=== PATIENT | female | born 1980 | race Caucasian/White ===

== ENCOUNTER 2016-12-09 11:04 | Emergency (ER) | payer OTHER ==
[~2016-12-09] VITALS: Ht 180.3 cm; Wt 150.9 kg
[~2016-12-09 11:04] MED LIST: ASPI500T15 PO; ESOM20CA28 PO; TPR100T PO; VALA500T PO
[2016-12-09 11:11] VITALS: BP 119/81; PULSE 88; RESP 16; O2SAT 99
[2016-12-09] MEDS ORDERED: VALA500T2 PO (11:16)
[2016-12-09] MEDS ORDERED: VENL75CA PO (11:16)
--- NOTE | 2016-12-09 11:35 | ED.REPORT ---
HPI-Headache Date of Service Dec 09, 2016 ED Provider: Doc,Ed MD History of Present Illness: headache all over head. usually does benadryl makes it go away. primary care is no one. headache started this morning, worse at [employer]. right sided pain for 2 weeks faded with pain meds from clinic. 9/10 pain. itching with nsaids. patient states morphine doesn't work but dilaulid works great. Nursing Notes Stated Complaint: HEADACHE/RIGHT SIDE PAIN Chief Complaint: Headache Nursing Notes Reviewed: Yes Allergies: Coded Allergies: prochlorperazine (Verified Allergy, Severe, 12/09/16) SEIZURES NSAIDS (Non-Steroidal Anti-Inflamma (Verified Allergy, Intermediate, rash , itching, 12/09/16) Coconut (Verified Allergy, Unknown, 12/09/16) morphine (Verified Adverse Reaction, Unknown, DOES NOT WORK, 12/09/16) Scheduled Valacyclovir HCl (Valtrex) 500 Mg Tablet 500 MG PO DAILY Venlafaxine ER (Effexor XR) 75 Mg Capsule 75 MG PO DAILY General Time Seen by MD: 11:30 Chief Complaint Headache, Other (right lower back pain also Seen 12/02/2016 for bilateral back pain at [facility]) Hx Obtained From: Patient Sudden in Onset?: No Symptom Duration: Since onset Location: : Generalized (for headache) Severity: Current: Pain level 9 out of 10 Recent Healthcare: Recent doctor visit (12/02/2016 for bilateral back pain) Past Medical History Past Medical History Notes: PCP: Dr. 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: Appendectomy, Cholecystectomy Smoking History Former Smoker (quit 08/2017) Social History Alcohol Use: Denies alcohol use Drug Use: THC Occupation lives with 3 children Ambulatory Status Independent Review of Systems Basic Review of Systems Respiratory: No shortness of breath, No cough, No wheeze Allergy / Immune: No allergy Physical Exam Initial Vital Signs Vital Signs (First) Date Time Temp Pulse Resp B/P Pulse Ox O2 Delivery O2 Flow Rate FiO2 12/09/16 11:11 36.5 88 16 119/81 99 Room Air Initial VS: Reviewed, Vital signs normal ENT: Mucous membranes moist, Conjunctiva normal, No scleral icterus Respiratory: Breath sounds normal, Clear to auscultation, No respiratory distress Cardiovascular: Regular rate & rhythm, Heart sounds normal, Intact distal pulses Abdomen / GI: Soft, Non-tender, No guarding, No rebound, No distention Back: No CVA tenderness Lymphatic: No lymphadenopathy Extremities: Vascular intact, Neuro intact, No swelling, No tenderness Skin: Warm, Dry, No cyanosis Psychiatric: Mood/affect normal, Behavior normal, Normal thought content General/Constitutional: Awake, Alert, No acute distress, Well appearing, Well developed, Well hydrated, Well nourished, Cooperative, Not toxic appearing Head / Eyes: Atraumatic, Normocephalic, PERRL, EOMI Neck: Atraumatic, Supple, No meningismus Neurologic: Oriented X3, Speech NL, No motor deficits ENT: Atraumatic, Airway patent, Mucous membranes moist Respiratory / Chest: Atraumatic, Breath sounds NL, Breath sounds = bilat, No respiratory distress Cardiovascular: Heart rate NL, Regular rhythm, Heart sounds NL, No gallop Abdomen: Atraumatic, Soft, Non-tender, McBurney's non-tender Interpretation & Diagnostics Lab Results Interpretation Result Diagram: 12/09/16 1220 12/09/16 1220 Test 12/09/16 12:20 White Blood Count 6.9th/mm3 (3.8-10.1) Red Blood Count 4.39mil/mm3 (3.90-5.20) Hemoglobin 13.6g/dL (12.0-15.6) Hematocrit 40.7% (35.0-46.0) Mean Corpuscular Volume 92.7fL (81-100) Mean Corpuscular Hemoglobin 31.0pg (27.0-35.0) Mean Corpuscular Hemoglobin Concent 33.4% (32.0-37.0) Red Cell Distribution Width 13.3% (12.3-15.4) Platelet Count 195bil/L (150-400) Neutrophils (%) (Auto) 64.8% (40-74) Lymphocytes (%) (Auto) 29.6% (14-46) Monocytes (%) (Auto) 4.2% (4-12) Eosinophils (%) (Auto) 1.2% (0-5) Basophils (%) (Auto) 0.1% (0-3) Urine Color Yellow (YELLOW) Urine Appearance Clear (CLEAR,HAZY) Urine pH 5.5 (5.0-8.0) Urine Specific Gabbs 1.020 (1.003-1.035) Urine Protein Negativemg/dL (NEG,TRACE) Urine Glucose (UA) Negativemg/dL (NEGATIVE) Urine Ketones Negativemg/dL (NEGATIVE) Urine Occult Blood Negative (NEGATIVE) Urine Nitrite Negative (NEGATIVE) Urine Bilirubin Negative (NEGATIVE) Urine Urobilinogen Normalmg/dL (NORMAL) Urine Leukocyte Esterase Negative (NEGATIVE) Urine RBC 0-2/hpf (0-2) Urine WBC 0-5/hpf (0-5) Urine Epithelial Cells None/hpf (NONE-MOD) Urine Crystals None seen (NONE SEEN) Urine Bacteria None/hpf (NONE-FEW) Urine Hyaline Casts None/lpf (NONE) Urine Granular Casts None seen (NONE SEEN) Urine Waxy Casts None seen (NONE SEEN) Urine Red Blood Cell Casts None seen (NONE SEEN) Urine White Blood Cell Casts None seen (NONE SEEN) Urine Mucus None seen (None Seen) Urine Trichomonas None seen (NONE SEEN) Urine Yeast None (NONE SEEN) Urinalysis Comment None Urine Culture Reflexed Not indicated Sodium Level 139mEq/L (134-144) Potassium Level 3.9mEq/L (3.5-5.2) Chloride Level 102mEq/L (97-108) Carbon Dioxide Level 21mmol/L (18-29) Blood Urea Nitrogen 19mg/dL (6-20) Creatinine 0.60mg/dL (0.57-1.00) Estimat Glomerular Filtration Rate 163mL/min (>59) Glucose Level 101mg/dL (60-99) Calcium Level 8.9mg/dL (8.5-10.1) Total Bilirubin 0.3mg/dL (0.0-1.2) Aspartate Amino Transf (AST/SGOT) 21U/L (0-50) Alanine Aminotransferase (ALT/SGPT) 23U/L (0-32) Alkaline Phosphatase 69U/L (25-150) Total Protein 6.8g/dL (6.4-8.4) Albumin 4.5g/dL (3.4-5.0) Hold Tse Top Tube Received (Received) Lab Results Interpretation: urine is negative CT Head Interpretation PROCEDURE: CT BRAIN WITHOUT CONTRAST ([id number]) INDICATIONS: headache TECHNIQUE: Noncontrast 4.5 mm thick angled axial sections acquired from the foramen magnum to the vertex, with coronal reformats. COMPARISON: [facility], CT, HEAD WITHOUT CONTRAST, 12/06/2015, 11:54. FINDINGS: Image quality: Excellent. CSF spaces: Basal cisterns are patent. No extra-axial fluid collections. Ventricles are normal in size and shape. There are bilateral ventriculostomy catheters. The right frontal catheter terminates in the anterior horn of the right lateral ventricle, and the left lateral catheter terminates in the anterior horn of the left lateral ventricle. Brain: No midline shift. No intracranial masses or hemorrhage. Orr-white matter interface is normal. Skull and face: Calvarium and visualized facial bones are intact, without suspicious lesions. Sinuses: Visualized sinuses and mastoids are clear. IMPRESSION: 1. No acute intracranial findings. 2. Bilateral ventriculostomy catheters. No hydrocephalus. Re-Eval/Medical Decision Med Decision/Clinical Course 36 year old female presents for evualation of headache and right lower back pain. patient is requesting opiates as she states that is the only thing that works. Advised opiates not indicated for head pain or muscle pain. Offered immitrex, patient states it does not help Discharge & Departure Impression: Primary Impression: Headache Headache type: tension-type Additional Impression: Muscle ache Disposition: Home Patient Instructions: Acute Headache (ED) Additional Instructions: Your labs are all normal including the urine. The CT KUB does not show any sign of a stone or infection. Unfortunately, opiates are not something that we use for headaches here. You can try duloxetine to see if that is not helpful. Please follow with the [facility] tomorrow. You can use phenergan to see if that helps with the nausea. Referrals: [facility] Provider for APC: Lorne Dawson MD copies to: [facility] [place] Dec 09, 2016 11:35 Additional Instructions: Your labs are all normal including the urine. The CT KUB does not show any sign of a stone or infection. Unfortunately, opiates are not something that we use for headaches here. You can try duloxetine to see if that is not helpful. Please follow with the [facility] tomorrow. You can use phenergan to see if that helps with the nausea. Referrals: [facility] Provider for APC: Lorne Dawson MD copies to: [facility] [place] Dec 09, 2016 11:35
[2016-12-09] MEDS ORDERED: Dexamethasone Inj 10 MG in 0.9% Sodium Chloride-Pha MIX 50 ML IV ONE (11:50)
[2016-12-09] MEDS: Acetaminophen IV 1,000 MG in IV Premix 1 EACH IV ONE ×2 (11:50→12:23)
[2016-12-09] MEDS ORDERED: 0.9% Sodium Chloride 1,000 ML IV ONE (11:50)
[2016-12-09] MEDS ORDERED: Ondansetron 2 mg/mL 2 mL Inj IVPUSH ONE (11:50)
--- NOTE | 2016-12-09 12:37 | DRSVH ---
PROCEDURE: CT KUB ([id number]) INDICATIONS: right flank pain TECHNIQUE: Noncontrast 5 mm thick sections acquired from the diaphragms to the symphysis. 5 mm thick coronal an d sagittal reformats were then performed. For radiation dose reduction, the following was used: aut omated exposure control, adjustment of mA and/or kV according to patient size. COMPARISON: None. FINDINGS: Image quality: Excellent. Lung bases: Lung bases are clear. Heart size is normal. Urinary system: Both kidneys are normal in size. No kidney stones. No hydronephrosis or perinephri c fat stranding. Both ureters appear non-dilated throughout their expected courses. Bladder wall th ickness is normal; no calcified bladder stones. The uterus is nonvisualized and may be surgically absent. Other solid organs: Liver and spleen are normal in size. Gallbladder is unremarkable. Pancreas is normal in contours. No adrenal nodules. Peritoneum and bowel: Unenhanced bowel loops demonstrate normal wall thickness and caliber. The appe ndix is not visualized; however there is no discrete right lower quadrant fluid or fat stranding to s uggest acute appendicitis. No free fluid or air. Nodes and vessels: No retroperitoneal or mesenteric adenopathy by size criteria. Aorta and inferior vena cava are normal in caliber. Abdominal wall: No ventral hernias. Pelvis: No free pelvic fluid. No inguinal hernias or adenopathy. Bones: No suspicious bony lesions. No vertebral body compression fractures. IMPRESSION: 1. No nephrolithiasis, hydronephrosis, hydroureter, or ureterolithiasis. 2. No acute intra-abdominal findings. The appendix is not visualized; however there are no ancillary findings to suggest acute appendicitis. Dictated by: Agustina Wilhelm M.D. on 12/09/2016 at 12:29 Approved by: Agustina Wilhelm M.D. on 12/09/2016 at 12:35
[2016-12-09 12:39] LABS: BASOPHILS % (AUTO) 0.1 % (0-3); EOSINOPHILS % (AUTO) 1.2 % (0-5); MONOCYTES % (AUTO) 4.2 % (4-12); Mean Corpuscular Volume 92.7 fL (81-100); NEUTROPHILS % (AUTO) 64.8 % (40-74); Platelet Count 195 bil/L (150-400)
[2016-12-09 13:12] LABS: APPEARANCE,URINE CLEAR (CLEAR,HAZY); COLOR,URINE YELLOW (YELLOW); OCCULT BLOOD,URINE NEGATIVE (NEGATIVE); PH,URINE 5.5 (5.0-8.0); UROBILINOGEN,URINE NORMAL (NORMAL)
[2016-12-09] MEDS ORDERED: Haloperidol 5 mg/mL Inj IVPUSH ONE (13:30)
[2016-12-09] MEDS ORDERED: MetoCLOpramide 5 mg/mL 2 mL Inj IM ONE (13:30)
--- NOTE | 2016-12-09 13:50 | DRSVH ---
PROCEDURE: CT BRAIN WITHOUT CONTRAST ([id number]) INDICATIONS: headache TECHNIQUE: Noncontrast 4.5 mm thick angled axial sections acquired from the foramen magnum to the vertex, with c oronal reformats. COMPARISON: [facility], CT, HEAD WITHOUT CONTRAST, 12/06/2015, 11:54. FINDINGS: Image quality: Excellent. CSF spaces: Basal cisterns are patent. No extra-axial fluid collections. Ventricles are normal in size and shape. There are bilateral ventriculostomy catheters. The right frontal catheter terminates in the anterior horn of the right lateral ventricle, and the left lateral catheter terminates in the anterior horn of the left lateral ventricle. Brain: No midline shift. No intracranial masses or hemorrhage. Orr-white matter interface is norm al. Skull and face: Calvarium and visualized facial bones are intact, without suspicious lesions. Sinuses: Visualized sinuses and mastoids are clear. IMPRESSION: 1. No acute intracranial findings. 2. Bilateral ventriculostomy catheters. No hydrocephalus. Dictated by: Agustina Wilhelm M.D. on 12/09/2016 at 13:47 Approved by: Agustina Wilhelm M.D. on 12/09/2016 at 13:48
[2016-12-09 14:46] VITALS: BP 130/62; PULSE 94; RESP 15; O2SAT 96
== END 2016-12-09 14:34 | disposition home or self-care (01) ==
LOC: SED 11:04
DX: G44.209 Tension-type headache, unspecified, not intractable (principal); M79.1 Myalgia; Z87.891 Personal history of nicotine dependence; Z88.5 Allergy status to narcotic agent; Z88.8 Allergy status to other drugs, medicaments and biological substances
CPT/HCPCS: 36415; 70450; 74176; 80053; 81000; 81025; 85025; 96372; 96374; 96375; 99285; J0131; J1100; J1200; J1630; J2405; J2765; J7030

== ENCOUNTER 2017-02-13 18:54 | Emergency (ER) | payer OTHER ==
[~2017-02-13] VITALS: Ht 180.3 cm; Wt 101.0 kg
[~2017-02-13 18:54] MED LIST changes: -ASPI500T15 PO; -ESOM20CA28 PO; -TPR100T PO; -VALA500T PO; +VALA500T2 PO; +VENL75CA PO
[2017-02-13 19:00] VITALS: BP 128/86; PULSE 92; RESP 16; O2SAT 97
--- NOTE | 2017-02-13 19:10 | ED.REPORT ---
HPI-Abd Pain F Under 40 Date of Service February 13, 2017 ED Provider: The patient is a 36 year old female with history of endometriosis, inguinal hernias s/p surgical repair, and multiple prior abdominal surgeries ( cholecystectomy, hysterectomy, appendectomy, bladder sling) who presents to the emergency department complaining of right groin pain that began 1 month ago. The patient states she was at work, bending and twisting when she first noticed back pain. Since the initial injury the pain has became more severe and is now located in her right groin region. Her pain is exacerbated with palpation. She has been seen by her regular doctor who thought she may have a hernia. The patient has an ultrasound scheduled for tomorrow but her pain was too severe tonight to wait. She denies fever, chills, vomiting, diarrhea, constipation, cough, chest pain or shortness of breath. Nursing Notes Stated Complaint: GROIN PAIN NO INJURY Chief Complaint: Female Abdominal Pain Nursing Notes Reviewed: Yes Allergies: Coded Allergies: prochlorperazine (Verified Allergy, Severe, 12/09/16) SEIZURES NSAIDS (Non-Steroidal Anti-Inflamma (Verified Allergy, Intermediate, rash , itching, 12/09/16) Coconut (Verified Allergy, Unknown, 12/09/16) morphine (Verified Adverse Reaction, Unknown, DOES NOT WORK, 12/09/16) Scheduled Valacyclovir HCl (Valtrex) 500 Mg Tablet 500 MG PO DAILY Venlafaxine ER (Effexor XR) 75 Mg Capsule 75 MG PO DAILY General Time Seen by MD: 19:08 Chief Complaint Other (right groin pain) Hx Obtained From: Patient, Daughter Arrived By: Walk-in Sudden in Onset?: Yes Onset Occurred: More than a week ago... Symptom Duration: Since onset Progression since Onset: Constant, Gradually worsening Location: : Suprapubic (right groin) Quality: Painful Severity: Current: Severe Severity: Maximum: Severe Recent Healthcare: No recent hospitalization, Recent doctor visit Similar Sx Previous: Yes Past Medical History Past Medical History Notes: PCP: Dr. 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: Appendectomy, Cholecystectomy, Hysterectomy Family History Noncontributory Smoking History Former Smoker Social History Alcohol Use: Denies alcohol use Drug Use: THC Other Social History: Good social support, Lives with children, Local resident Occupation lives with 3 children Ambulatory Status Independent Review of Systems Constitutional: Denies: Chills, Fever Respiratory: Denies: Non-productive cough, Shortness of breath Cardiovascular: Denies: Chest pain GI: Reports: Abdominal pain, Denies: Constipation, Diarrhea, Vomiting Musculoskeletal: Reports: Back pain Complete sys rev & neg: except as marked. Physical Exam Initial Vital Signs Vital Signs (First) Date Time Temp Pulse Resp B/P Pulse Ox O2 Delivery O2 Flow Rate FiO2 02/13/17 19:00 37. 92 16 128/86 97 Room Air Initial VS: Reviewed Head / Eyes: Atraumatic, Normocephalic, PERRL ENT: Mucous membranes moist, Conjunctiva normal, No scleral icterus Neck: Supple, Non-tender, Full range of motion Lymphatic: No lymphadenopathy Extremities: Vascular intact, Neuro intact, No swelling, No tenderness Skin: Warm, Dry, No cyanosis Neurologic: Alert, Oriented, Nonfocal Psychiatric: Mood/affect normal, Behavior normal, Normal thought content General/Constitutional: Awake, Alert Respiratory / Chest: Atraumatic, Breath sounds NL, Breath sounds = bilat, No respiratory distress, No rales, No rhonchi, No wheezing Cardiovascular: Heart rate NL, Regular rhythm, No gallop, No rubs, Peripheral circulation NL Heart Sounds / Murmur: Positive: Systolic murmur present.. (II/) Abdomen: Soft, No guarding, No rebound, BS normoactive, No distention She is very tender over the right inguinal ligament. Back: Inspection NL Flank / Spine / Paraspinal: Positive: Flank tender R Interpretation & Diagnostics Interpretation & Diagnostics: ABDOMINAL US IMPRESSION: Mass at the clinical area of concern likely represents postoperative change. A small hernia is possible although no bowel or abdominal contents are specifically identified. This finding could be more definitively evaluated with a pelvic CT including marker of the clinical area of concern. Dictated by: Ivan Hannah M.D. on 02/13/2017 at 21:34 Approved by: Ivan Hannah M.D. on 02/13/2017 at 21:37 Lab Results Interpretation Result Diagram: 02/13/17193702/13/171937 Test 02/13/17 19:38 02/13/17 20:20 White Blood Count 7.0th/mm3 (3.8-10.1) Red Blood Count 4.55mil/mm3 (3.90-5.20) Hemoglobin 14.2g/dL (12.0-15.6) Hematocrit 42.2% (35.0-46.0) Mean Corpuscular Volume 92.7fL (81-100) Mean Corpuscular Hemoglobin 31.2pg (27.0-35.0) Mean Corpuscular Hemoglobin Concent 33.6% (32.0-37.0) Red Cell Distribution Width 13.6% (12.3-15.4) Platelet Count 226bil/L (150-400) Neutrophils (%) (Auto) 54.1% (40-74) Lymphocytes (%) (Auto) 36.5% (14-46) Monocytes (%) (Auto) 7.2% (4-12) Eosinophils (%) (Auto) 1.9% (0-5) Basophils (%) (Auto) 0.3% (0-3) Sodium Level 139mEq/L (134-144) Potassium Level 3.9mEq/L (3.5-5.2) Chloride Level 102mEq/L (97-108) Carbon Dioxide Level 23mmol/L (18-29) Blood Urea Nitrogen 15mg/dL (6-20) Creatinine 0.70mg/dL (0.57-1.00) Estimat Glomerular Filtration Rate 136mL/min (>59) Glucose Level 86mg/dL (60-99) Calcium Level 9.6mg/dL (8.5-10.1) Total Bilirubin 0.2mg/dL (0.0-1.2) Aspartate Amino Transf (AST/SGOT) 18U/L (0-50) Alanine Aminotransferase (ALT/SGPT) 19U/L (0-32) Alkaline Phosphatase 75U/L (25-150) Total Protein 7.2g/dL (6.4-8.4) Albumin 4.3g/dL (3.4-5.0) Hold Purple Top Tube Received (Received) Hold Blue Top Tube Received (Received) Hold [place] Top Tube Received (Received) Hold Tse Top Tube Received (Received) Re-Eval/Medical Decision Source of Hx: Old records, Family Re-Evaluation/Progress : Time of Eval: 22:25 Re-Evaluation/Progress Note: Pt rechecked. US shows a reducable hernia. Counseled Regarding: Diagnosis, Lab results, Need for follow-up, When/why to return to ED Discharge & Departure Primary Impression: Inguinal hernia Obstruction and gangrene presence: without obstruction or gangrene Laterality : unspecified laterality Recurrence: not specified as recurrent Qualified Code: K40.90 - Unilateral inguinal hernia, without obstruction or gangrene, not specified as recurrent Additional Impression: Abdominal pain Disposition: Home Discharge Condition All VS Reviewed: Yes Condition: Stable Patient Instructions: Acute Abdominal Pain (ED), Inguinal Hernia (ED) Additional Instructions: Thank you for entrusting us with your care today. Your ultrasound shows evidence of an inguinal hernia. No evidence of incarceration. Call your doctor's office tomorrow morning and tell them you were in the ER and need an appointment in the next day or two in order to get a surgeon and for pain management. I do not think narcotics are a good option for you right now. Use Tylenol 1000 mg every 6 hours as needed for pain. Follow-up with your regular doctor next week for re-evaluation. Seek care for any new or concerning symptoms. Referrals: OTHER,PHYSICIAN (PCP) [facility] Scribe Attestation Portions of this note were transcribed by Faith Sterling. I, Dr. Dawson personally performed the history, physical exam and medical decision-making; I reviewed and confirmed the accuracy of the information in the transcribed note. Signed by: Jairo Taylor, 02/13/2017 at 2100. copies to: OTHER,PHYSICIAN; [facility] Lorne Dawson MD February 13, 2017 19:09 Faith Sterling February 13, 2017 19:17 Christi Starr February 13, 2017 22:31
[2017-02-13] MEDS ORDERED: Ondansetron 2 mg/mL 2 mL Inj IVPUSH PRN (19:20)
[2017-02-13] MEDS ORDERED: Iohexol 300 mg/mL 30 mL Inj PO ONE (19:45)
[2017-02-13 19:55] LABS: BASOPHILS % (AUTO) 0.3 % (0-3); EOSINOPHILS % (AUTO) 1.9 % (0-5); MONOCYTES % (AUTO) 7.2 % (4-12); Mean Corpuscular Hemoglobin 31.2 pg (27.0-35.0); Mean Corpuscular Volume 92.7 fL (81-100); NEUTROPHILS % (AUTO) 54.1 % (40-74); Platelet Count 226 bil/L (150-400)
--- NOTE | 2017-02-13 21:44 | DRSVH ---
PROCEDURE: US ABDOMEN, LIMITED ([id number]) INDICATIONS: right groin pain TECHNIQUE: Real-time focused scanning was performed of the abdomen with attention to the appendix, with image do cumentation. COMPARISON: [facility], CT from 12/09/16. FINDINGS: There is a 19 mm hypoechoic mass at the clinical area of of concern in the right inguinal region with no distinct bowel or abdominal contents most consistent with postoperative change. A small hernia is possible. IMPRESSION: Mass at the clinical area of concern likely represents postoperative change. A small cailin ia is possible although no bowel or abdominal contents are specifically identified. This finding coul d be more definitively evaluated with a pelvic CT including marker of the clinical area of concern. Dictated by: Ivan Hannah M.D. on 02/13/2017 at 21:34 Approved by: Ivan Hannah M.D. on 02/13/2017 at 21:37
[2017-02-13] MEDS ORDERED: MetoCLOpramide 5 mg/mL 2 mL Inj ONE (22:08)
[2017-02-13] MEDS ORDERED: MetoCLOpramide 5 mg/mL 2 mL Inj IVPUSH ONE (22:25)
[2017-02-13 23:16] VITALS: BP 130/78; PULSE 80; RESP 16; O2SAT 97
== END 2017-02-13 23:00 | disposition home or self-care (01) ==
LOC: SED 18:54
DX: K40.90 Unilateral inguinal hernia, without obstruction or gangrene, not specified as recurrent (principal); X50.0XXA Overexertion from strenuous movement or load, initial encounter; Y93.89 Activity, other specified; Y92.89 Other specified places as the place of occurrence of the external cause; Y99.8 Other external cause status; Z98.890 Other specified postprocedural states; Z90.49 Acquired absence of other specified parts of digestive tract; Z87.891 Personal history of nicotine dependence; Z88.5 Allergy status to narcotic agent; Z88.8 Allergy status to other drugs, medicaments and biological substances; Z91.018 Allergy to other foods